=== PATIENT | male | born 1970 | race Caucasian/White ===

== ENCOUNTER → 2017-02-11 | Outpatient (CLI) | payer OTHER ==
[~2017-02-11] MED LIST: ACET-1256 PO; ALPR-411 PO; CLC100 PO; GADAVIST IV PRN; PARO1TAB27 PO
--- NOTE | 2017-02-11 16:53 | DIAGNOSTIC IMAGING REPORT ---
MRI OF THE ABDOMEN WITH AND WITHOUT CONTRAST RENAL PROTOCOL CLINICAL HISTORY: Renal cell carcinoma. Microscopic hematuria. COMPARISON STUDY: CT of the abdomen and pelvis February 02, 2016 and KUB August 27, 2016. TECHNIQUE: Utilizing a 1.5 Linette magnet and dedicated coil, multiplanar, multiecho imaging of the abdomen was performed pre and postcontrast administration. Post contrast imaging was performed utilizing dynamic enhancement. Injection of 8.3 cc of Gadavist IV was uneventful. FINDINGS: There are are stable postoperative findings following right nephrectomy. There is no abnormality within the right nephrectomy bed. The liver, spleen, adrenal glands and pancreas are unremarkable. The left kidney is normal. There is no left hydronephrosis. No abdominal lymphadenopathy is present. Several small ileocolic lymph nodes are unchanged. A 9 mm T2 hyperintense lesion within the right aspect of the L3 vertebral body is likely benign although indeterminate. The caliber and wall thickness of visualized small and large bowel are normal. There is no biliary or pancreatic ductal dilatation. There are are gallstones within the gallbladder. There is no ascites. IMPRESSION: 1. No evidence of recurrent malignancy status post right nephrectomy. 2. 9 mm T2 hyperintense lesion within the L3 vertebral body. This is indeterminate although likely benign. A follow-up MRI could be obtained in 6-12 months to ensure stability. Electronically signed by: Rod Disla M.D. 02/11/2017 4:52 PM Dictated Date/Time: 02/11/2017 11:10 AM
== END | disposition home or self-care (01) ==
LOC: C.MRIBC 09:39
PROVIDERS: ATTEND Urology
DX: R31.29 Other microscopic hematuria (principal); M53.86 Other specified dorsopathies, lumbar region

== ENCOUNTER → 2017-02-17 | Outpatient (CLI) | payer OTHER ==
[~2017-02-17] MED LIST changes: -GADAVIST IV PRN
--- NOTE | 2017-02-17 11:27 | DIAGNOSTIC IMAGING REPORT ---
CHEST 2 VIEWS ROUTINE CLINICAL HISTORY: Microscopic hematuria. History of renal cell carcinoma. COMPARISON STUDY: Chest radiograph August 27, 2016. FINDINGS: Lung volumes are normal. Lungs are clear. There is no pneumothorax or pleural effusion. Cardiac size is normal. Mediastinal contours are normal. There is no evidence of pulmonary edema. No pulmonary nodules are identified although sensitivity is diminished given radiographic technique. IMPRESSION: No acute cardiopulmonary findings. Electronically signed by: Rod Disla M.D. 02/17/2017 11:25 AM Dictated Date/Time: 02/17/2017 11:24 AM
--- NOTE | 2017-02-17 13:04 | DIAGNOSTIC IMAGING REPORT ---
KUB CLINICAL HISTORY: Hematuria. FINDINGS: 2 AP supine abdominal radiographs are compared to study dated 08/27/2016 and correlated with abdominal CT dated 02/02/2016. There is a nonobstructed abdominal bowel gas pattern. Moderate colonic fecal retention is noted on the right. Suture material projects over the right upper quadrant. There is no radiographic evidence of nephrolithiasis. The bony structures appear intact. Sclerotic change is noted in the sacroiliac joints. IMPRESSION: There is no radiographic evidence of nephrolithiasis. Electronically signed by: Luis Felipe Santiago M.D. 02/17/2017 1:02 PM Dictated Date/Time: 02/17/2017 1:00 PM
== END | disposition home or self-care (01) ==
LOC: C.RAD 10:40
PROVIDERS: ATTEND Urology
DX: R31.29 Other microscopic hematuria (principal)

== ENCOUNTER → 2017-04-25 | Outpatient (CLI) | payer OTHER ==
--- NOTE | 2017-04-25 14:53 | DIAGNOSTIC IMAGING REPORT ---
WHOLE-BODY BONE SCAN, INCLUDING SPECT IMAGING CLINICAL HISTORY: Bone lesion. Renal cell carcinoma. Chronic back pain. COMPARISON STUDY: MRI of the abdomen February 11, 2017. TECHNIQUE: 26.2 mCi of technetium 99 M MDP was injected IV at 10:30 AM on April 25, 2017. 3 hours following injection, whole body imaging was performed in the anterior and posterior projections. SPECT imaging was also performed within the mid to lower thoracic spine, lumbar spine and sacrum. FINDINGS: Expected radiotracer deposition is noted. There is expected soft tissue and renal uptake. There is mild uptake within the right ankle which is likely degenerative. No areas of suspicious radiotracer uptake are identified. There is no uptake within the L3 vertebral body to correspond to the lesion shown on prior MRI. IMPRESSION: No suspicious radiotracer uptake. No uptake to correspond to the L3 vertebral body lesion shown on prior MRI. This lesion remains indeterminate although likely benign and could be followed on subsequent imaging studies to ensure stability. Electronically signed by: Rod Disla M.D. 04/25/2017 2:52 PM Dictated Date/Time: 04/25/2017 2:44 PM
== END | disposition home or self-care (01) ==
LOC: C.NUCL 10:10
PROVIDERS: ATTEND Physician Assistant
DX: M89.9 Disorder of bone, unspecified (principal); C64.9 Malignant neoplasm of unspecified kidney, except renal pelvis; M54.5 Low back pain

== ENCOUNTER → 2017-05-02 | Outpatient (CLI) | payer OTHER ==
[2017-05-02 17:31] LABS: HEMATOCRIT 43.5 % (42-52); MEAN CELL VOLUME 90.2 fL (80-100); MEAN CORPUSCULAR HEMOGLOBIN 31.5 pg (25-34); MEAN CORPUSCULAR HGB CONC 34.9 g/dl (32-36); MEAN PLATELET VOLUME 9.2 fL (7.4-10.4); PLATELET COUNT 231 K/uL (130-400); RED BLOOD COUNT 4.82 M/uL (4.7-6.1)
[2017-05-02 17:34] LABS: URINE APPEARANCE CLEAR (CLEAR); URINE BILIRUBIN NEG (NEG); URINE COLOR YELLOW; URINE EPITHELIAL CELL AUTO 0-5 /lpf (0-5); URINE NITRITE NEG (NEG); URINE PH 6.5 (4.5-7.5); URINE SPECIFIC GRAVITY 1.017 (1.000-1.030); UROBILINOGEN NEG (NEG)
[2017-05-02 17:45] LABS: MANUAL MICROSCOPIC REQUIRED? NO; REVIEW REQ? NO
[2017-05-02 18:03] LABS: URINE PROTIEN/CREAT RATIO 0.1 (0-0.2); URINE TOTAL PROTEIN 15.5 mg/dl (0-11.9)
[2017-05-02 18:08] LABS: BLOOD UREA NITROGEN 15 mg/dl (7-18); BUN/CREATININE RATIO 10.1 (10-20); CALCIUM 9.2 mg/dl (8.5-10.1); CARBON DIOXIDE 28 mmol/L (21-32); CHLORIDE 104 mmol/L (98-107); GLUCOSE 89 mg/dl (70-99); MAGNESIUM 2.3 mg/dl (1.8-2.4); PHOSPHORUS 2.7 mg/dl (2.5-4.9); POTASSIUM 3.1 mmol/L (3.5-5.1); SODIUM 141 mmol/L (136-145); URIC ACID 5.2 mg/dl (2.6-7.2)
== END | disposition home or self-care (01) ==
LOC: C.LAB1850 16:45
PROVIDERS: ATTEND Internal Medicine Nephrology
DX: C64.9 Malignant neoplasm of unspecified kidney, except renal pelvis (principal); N18.3 Chronic kidney disease, stage 3 (moderate); R31.29 Other microscopic hematuria; N20.0 Calculus of kidney

== ENCOUNTER → 2017-10-08 | Outpatient (CLI) | payer OTHER ==
[2017-10-08 09:36] LABS: HEMATOCRIT 43.7 % (42-52); MEAN CELL VOLUME 91.4 fL (80-100); MEAN PLATELET VOLUME 9.1 fL (7.4-10.4); PLATELET COUNT 209 K/uL (130-400); RED BLOOD COUNT 4.78 M/uL (4.7-6.1); WHITE BLOOD COUNT 7.42 K/uL (4.8-10.8)
[2017-10-08 09:38] LABS: URINE APPEARANCE CLEAR (CLEAR); URINE BILIRUBIN NEG (NEG); URINE COLOR YELLOW; URINE NITRITE NEG (NEG); URINE PH 6.5 (4.5-7.5); URINE SPECIFIC GRAVITY 1.018 (1.000-1.030); UROBILINOGEN NEG (NEG)
[2017-10-08 09:42] LABS: MANUAL MICROSCOPIC REQUIRED? NO; REVIEW REQ? NO
[2017-10-08 10:03] LABS: ALT/SGPT 37 U/L (12-78); AST/SGOT 22 U/L (15-37); BLOOD UREA NITROGEN 18 mg/dl (7-18); BUN/CREATININE RATIO 12.1 (10-20); CALCIUM 9.1 mg/dl (8.5-10.1); CARBON DIOXIDE 28 mmol/L (21-32); CHLORIDE 102 mmol/L (98-107); CREATININE 1.51 mg/dl (0.60-1.40); GLUCOSE 117 mg/dl (70-99); MAGNESIUM 2.3 mg/dl (1.8-2.4); POTASSIUM 3.4 mmol/L (3.5-5.1); SODIUM 137 mmol/L (136-145); URIC ACID 5.4 mg/dl (2.6-7.2)
[2017-10-08 10:04] LABS: ALB/GLOB RATIO 1.2 (0.9-2); ALKALINE PHOSPHATASE 53 U/L (45-117)
[2017-10-08 10:26] LABS: URINE PROTIEN/CREAT RATIO 0.1 (0-0.2); URINE TOTAL PROTEIN 12.7 mg/dl (0-11.9)
== END | disposition home or self-care (01) ==
LOC: C.LAB1850 08:40
PROVIDERS: ATTEND Internal Medicine Nephrology
DX: R31.29 Other microscopic hematuria (principal); N18.3 Chronic kidney disease, stage 3 (moderate); E55.9 Vitamin D deficiency, unspecified; N20.0 Calculus of kidney

== ENCOUNTER → 2018-03-17 | Outpatient (CLI) | payer OTHER ==
--- NOTE | 2018-03-17 08:16 | DIAGNOSTIC IMAGING REPORT ---
LUMBAR SPINE W/O CONTRAST CLINICAL HISTORY: 47 years-old Male presenting with ABN LESION ON SPINE,F/U STUDY. TECHNIQUE: Multisequence, multiplanar MR imaging of the lumbar spine was performed without the use of intravenous contrast. IV contrast: None. COMPARISON: Nuclear medicine bone scan from 04/25/2017 and prior MR from 02/11/2017. FINDINGS: Localizer images: Absence of the right kidney. Normal lumbar lordosis. Vertebral bodies maintain normal height, alignment, and bone marrow signal intensity apart from the T2 hyperintense, T1 hypointense well-defined lesion in the L3 vertebral body. This is unchanged in size and appearance from prior MR of the abdomen last year. An additional similar-appearing lesion is also noted at L5. Both of these lesions are subcentimeter in size. Intervertebral discs demonstrate desiccation at L4-5 and desiccation and height loss at L5-S1. No significant spinal canal stenosis at any of the levels. Mild disc bulge at L5-S1 in combination with mild facet arthropathy results in mild bilateral neural foraminal narrowing at L5-S1. The spinal cord ends in good position at the inferior plate of L1. Cauda equina normal morphology. Paraspinal musculature normal. No epidural collection. Surgically absent right kidney noted. IMPRESSION: 1. Two indeterminant subcentimeter nonaggressive appearing lesions, one at L3 and one at L5. These most likely represent fat poor hemangiomas. No further follow-up is suggested. The lack of radiotracer avidity on prior bone scan further suggests hemangioma as nearly all primary bone tumors except a simple bone cyst would demonstrate radiotracer avidity. Electronically signed by: Eamon Lozano M.D. 03/17/2018 8:14 AM Dictated Date/Time: 03/17/2018 8:07 AM
== END | disposition home or self-care (01) ==
LOC: C.MRI 06:35
PROVIDERS: ATTEND Physician Assistant
DX: M89.9 Disorder of bone, unspecified (principal); M54.5 Low back pain

== ENCOUNTER → 2018-03-17 | Outpatient (CLI) | payer OTHER ==
[2018-03-17 09:37] LABS: HEMATOCRIT 42.3 % (42-52); HEMOGLOBIN 15.1 g/dL (14.0-18.0); MEAN CELL VOLUME 90.6 fL (80-100); MEAN CORPUSCULAR HEMOGLOBIN 32.3 pg (25-34); MEAN CORPUSCULAR HGB CONC 35.7 g/dl (32-36); MEAN PLATELET VOLUME 9.2 fL (7.4-10.4); PLATELET COUNT 209 K/uL (130-400); RED CELL DISTRIBUTION WIDTH CV 12.4 % (11.5-14.5); RED CELL DISTRIBUTION WIDTH SD 41.2 fL (36.4-46.3); WHITE BLOOD COUNT 6.78 K/uL (4.8-10.8)
[2018-03-17 10:01] LABS: ALBUMIN 3.9 gm/dl (3.4-5.0); ALT/SGPT 56 U/L (12-78); AST/SGOT 28 U/L (15-37); BLOOD UREA NITROGEN 15 mg/dl (7-18); CALCIUM 8.3 mg/dl (8.5-10.1); CARBON DIOXIDE 27 mmol/L (21-32); CREATININE 1.49 mg/dl (0.60-1.40); GLUCOSE 92 mg/dl (70-99); POTASSIUM 3.9 mmol/L (3.5-5.1); SODIUM 140 mmol/L (136-145)
[2018-03-17 10:04] LABS: ALKALINE PHOSPHATASE 53 U/L (45-117); TOTAL PROTEIN 7.3 gm/dl (6.4-8.2)
== END | disposition home or self-care (01) ==
LOC: C.LAB 06:39
PROVIDERS: ATTEND Internal Medicine Nephrology
DX: N18.3 Chronic kidney disease, stage 3 (moderate) (principal); E55.9 Vitamin D deficiency, unspecified; E21.3 Hyperparathyroidism, unspecified; R31.29 Other microscopic hematuria; N20.0 Calculus of kidney

== ENCOUNTER → 2018-06-07 | Outpatient (CLI) | payer OTHER ==
[2018-06-07 11:01] LABS: ALBUMIN 3.9 gm/dl (3.4-5.0); BLOOD UREA NITROGEN 13 mg/dl (7-18); CALCIUM 8.7 mg/dl (8.5-10.1); CARBON DIOXIDE 28 mmol/L (21-32); CREATININE 1.41 mg/dl (0.60-1.40); GLUCOSE 88 mg/dl (70-99); PHOSPHORUS 2.4 mg/dl (2.5-4.9); POTASSIUM 3.5 mmol/L (3.5-5.1); SODIUM 138 mmol/L (136-145)
== END | disposition home or self-care (01) ==
LOC: C.LAB 10:06
PROVIDERS: ATTEND Internal Medicine Nephrology
DX: N20.0 Calculus of kidney (principal)

== ENCOUNTER 2020-04-27 09:51 | Inpatient (IN) ==
[2020-04-27] MEDS ORDERED: SODIUM CHLORIDE 0.9% 1000ML 2,000 ML IV ONE (10:05)
--- NOTE | 2020-04-27 10:11 | Emergency Department Note ---
Impression & Plan Perforation of sigmoid colon due to diverticulitis, Abdominal pain, Pneumoperitoneum ED Provider Note NAME: ANNETTE NICHOLS AGE: 49 SEX: M : 1970 ARRIVES VIA: Walk-In INFORMANT: Patient ED PROVIDER(S): Alfredo Garcia DO CHIEF COMPLAINT: Abdominal pain HPI: Patient is a 49-year-old male with a past medical history of a nephrectomy secondary to cancer that presents to the ER for infraumbilical abdominal pain which has been present since Friday. He describes it as a dull ache about a 1 out of 10 currently. He notes it has waxed and waned over the past several days. Friday was the worst. Friday he did not eat or drink secondary to the pain. He has been eating and drinking a little bit better now. He denies any vomiting. No dysuria urgency or frequency. No hematuria. No headache, change in vision, chest pain, shortness of breath, nausea vomiting or diarrhea. Last bowel movement was earlier this morning where he had several loose bowel mo vements. ROS: See above HPI for pertinent positives & negatives. A total of 10 systems reviewed and were otherwise negative. PAST MEDICAL HISTORY:See Below PAST SURGICAL HISTORY:See Below FAMILY HISTORY:See Below SOCIAL HISTORY:See Below HOME MEDICATIONS:See Below ALLERGIES:See Below VITALS:See Below PHYSICAL EXAMINATION: GENERAL: Sitting up in bed, alert, well appearing, well nourished, no distress, non-toxic EYE EXAM: normal conjunctiva. OROPHARYNX: no exudate, no erythema, lips, buccal mucosa, and tongue normal and mucous membranes are moist NECK: supple, no nuchal rigidity, no adenopathy, non-tender LUNGS: Clear to auscultation. Normal chest wall mechanics HEART: no murmurs, S1 normal and S2 normal ABDOMEN: abdomen soft, infraumbilical abdominal pain, normo-active bowel sounds, no masses, no rebound or guarding. BACK: Back is symmetrical on inspection and there is no deformity, no midline tenderness, no CVA tenderness. SKIN: no rashes and no bruising UPPER EXTREMITIES: upper extremities are grossly normal. LOWER EXTREMITIES: No pitting edema. NEURO EXAM: Normal sensorium, cranial nerves II-XII grossly intact, normal speech, no gross weakness of arms, no gross weakness of legs. MEDICAL DECISION MAKING: Patient is a 49-year-old male who presents the ER for infraumbilical abdominal pain which has been present since this past Friday. On exam he does have tenderness. IV was established blood work was obtained. Labs show leukocytosis of 14,000. No significant anemia. BMP with LFTs bilirubin was unremarkable. Lipase was slightly elevated at 573. UA was clean. CT abdomen pelvis shows pneumoperitoneum with diverticulitis. Discussed with general surgery who evaluated the patient at bedside. Patient was given IV fluids. Patient was given IV Zosyn. He denied any pain medications. Evaluated by general surgery and admitted to the hospital. Triage Nursing notes reviewed. Prior medical records reviewed Vital Signs: reviewed and remarkable for no significant abnormalities Differential diagnosis: Differential diagnoses includes but is not limited to gastritis, peptic ulcer d isease, GERD, gallbladder disease, pancreatitis, small bowel obstruction, acute coronary syndrome, pericarditis, ischemic bowel, irritable bowel disease, irritable bowel syndrome, appendicitis, diverticulitis, malignancy, hernia, urinary tract infection, torsion, perforation, trauma, infectious. ER treatment provided: See below Diagnostics interpreted by me: ECG: none Cardiac Monitoring: An order was placed for continuous cardiac monitoring. The monitor shows a rate of 83 with Sinus rhythm. Laboratory studies: As stated above and show below. 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 Beliefs That Will Affect Care: None Current Living Situation: Alone Other Information That Helps Us Care for You: No Feels Safe at Home: Yes Safety Concerns: Feels Safe At This Time Smoking Status: Former smoker Hx Alcohol Use: No Hx Substance Use: No Allergies Allergies Allergy/AdvReac Type Severity Reaction Status Date / Time chlorthalidone Allergy Unknown RASH Verified 06/18/20 12:12 Home Meds Home Medications Medication Instructions Recorded Confirmed ergocalciferol (vitamin D2) 50,000 unit PO MONTHLY 04/27/20 04/27/20 hydrochlorothiazide 12.5 mg PO QAM 04/27/20 04/27/20 ibuprofen 200 mg PO HS PRN 04/27/20 04/27/20 potassium chloride 20 meq PO QAM 04/27/20 04/27/20 Results & Data (ED) Vital Signs Vital Signs - 24 hr 04/27/20 09:54 04/27/20 10:26 04/27/20 11:52 Temperature 37 C Temperature Source Oral Pulse Rate 88 Pulse Rate [Apical] 90 Pulse Rhythm Regular Pulse Strength Normal Respiratory Rate 18 18 Respiratory Effort / Characteristics Non-Labored Spontaneous Respiratory Depth Normal Respiratory Pattern Regular Blood Pressure 138/89 Blood Pressure [Left Arm] 139/96 Blood Pressure Mean 105 Blood Pressure Mean [Left Arm] 110 Blood Pressure Position Sitting Pulse Oximetry 98 98 98 Oxygen Delivery Method Room Air Room Air Room Air Sepsis Recent Fever Within 48 Hours No Sepsis New/Unexplained Change in Mental Status No Sepsis Action Taken by Nursing No Action Required Laboratory Data Result diagrams: 04/27/20 10:30 04/27/20 10:30 Lab Results 04/27/20 04/27/20 04/27/20 Range/Units 10:30 10:30 10:30 WBC 14.61 H (4.8-10.8) K/uL RBC 4.87 (4.7-6.1) M/uL Hgb 15.6 (14.0-18.0) g/dL Hct 45.0 (42-52) % MCV 92.4 (80-100) fL MCH 32.0 (25-34) pg MCHC 34.7 (32-36) g/dL RDW Std Deviation 41.5 (36.4-46.3) fL RDW Coeff of Tobias 12.4 (11.5-14.5) % Plt Count 194 (130-400) K/uL MPV 9.4 (7.4-10.4) fL Immature Gran % (Auto) 0.3 % Neut % (Auto) 80.9 % Lymph % (Auto) 10.5 % Pender % (Auto) 7.5 % Eos % (Auto) 0.7 % Baso % (Auto) 0.1 % Immature Gran # (Auto) 0.04 H (0.00-0.02) K/uL Neut # (Auto) 11.83 H (1.4-6.5) K/uL Lymph # (Auto) 1.54 (1.2-3.4) K/uL Pender # (Auto) 1.09 H (0.11-0.59) K/uL Eos # (Auto) 0.10 (0-0.5) K/uL Baso # (Auto) 0.01 (0-0.2) K/uL Sodium 140 (136-145) mmol/L Potassium 3.8 (3.5-5.1) mmol/L Chloride 107 (98-107) mmol/L Carbon Dioxide 29 (21-32) mmol/L Anion Gap 4.0 (3-11) BUN 12 (7-18) mg/dl Creatinine 1.30 (0.6-1.4) mg/dl Est Cr Clr Drug Dosing 75.4 ml/min Est GFR ( Amer) 74.3 Est GFR (Non-Af Amer) 64.1 BUN/Creatinine Ratio 9.5 L (10-20) Glucose 111 H (70-99) mg/dl Calcium 9.0 (8.5-10.1) mg/dl Total Bilirubin 0.5 (0.2-1) mg/dl AST 15 (15-37) U/L ALT 28 (12-78) U/L Alkaline Phosphatase 46 (45-117) U/L Total Protein 7.3 (6.4-8.2) gm/dl Albumin 3.7 (3.4-5.0) gm/dl Globulin 3.6 (2.5-4.0) gm/dl Albumin/Globulin Ratio 1.0 (0.9-2) Lipase 573 H (73-393) U/L Urine Color Yellow Urine Appearance Clear (Clear) Urine pH 7.0 (4.5-7.5) Ur Specific [place] 1.019 (1.000-1.030) Urine Protein Negative (Negative) Urine Glucose (UA) Negative (Negative) Urine Ketones Negative (Negative) Urine Blood Trace H (Negative) Urine Nitrite Negative (Negative) Urine Bilirubin Negative (Negative) Urine Urobilinogen Negative (Negative) Ur Leukocyte Esterase Negative (Negative) Urine WBC (Auto) 1-5 (0-5) /hpf Urine RBC (Auto) 5-10 H (0-4) /hpf U Hyaline Cast (Auto) 1-5 (0-5) /lpf U Epithel Cells (Auto) 5-10 H (0-5) /lpf Urine Bacteria (Auto) Negative (Negative) Administered Medications Sodium Chloride (Nss 1000ml) 1,000 mls @ 125 mls/hr IV .Q8H GABRIELLA Stop: 05/27/20 13:45 Last Admin: 04/27/20 14:05 Dose: 125 mls/hr Documented by: [id number] Morphine Sulfate (Morphine Sulfate) 2 mg IV Q2H PRN PRN Reason: MODERATE Pain (Scale 4,5,6) Stop: 05/11/20 13:45 Last Admin: 04/27/20 16:15 Dose: 2 mg Documented by: [id number] Discontinued Medications Sodium Chloride (Nss 1000ml) 2,000 mls @ 999 mls/hr IV .Q2H1M ONE Stop: 04/27/20 12:05 Last Infusion: 04/27/20 12:41 Dose: 0 mls/hr Documented by: [id number] Admin: 04/27/20 10:40 Dose: 999 mls/hr Documented by: [id number] Piperacillin Sod/Tazobactam Sod (Zosyn) 4.5 gm in 120 mls @ 240 mls/hr IV NOW ONE Stop: 04/27/20 12:14 Last Infusion: 04/27/20 12:28 Dose: 0 mls/hr Documented by: [id number] Admin: 04/27/20 11:57 Dose: 240 mls/hr Documented by: [id number] Ioversol (Optiray 320 100ml) 94 ml IV ONCE PRN PRN Reason: Interaction Checking Stop: 05/01/20 11:24 Last Admin: 04/27/20 11:25 Dose: 94 ml Documented by: [id number] Discharge Plan Visit Data *Final* Discharge Date/Time: 04/27/20 13:02 Chief Complaint: Abdominal Pain Stated Complaint: LOWER ABD PAIN,CHILLS,NAUSEA ED Provider: Alfredo Garcia Discharge Problem: Perforation of sigmoid colon due to diverticulitis, Abdominal pain, Pneumoperitoneum Patient Disposition: Admitted As Inpatient Discharge Instructions Interventions: ED Discharge Assessment Last Done: 04/27/20 13:02 Discharge Problem: Abdominal pain Qualifiers: Abdominal location: unspecified location Qualified Code(s): R10.9 - Unspecified abdominal pain
[2020-04-27 10:47] LABS: Basophils # (auto) 0.01 K/uL (0-0.2); Basophils % (auto) 0.1 %; Eosinophils % (auto) 0.7 %; Hemoglobin 15.6 g/dL (14.0-18.0); Immature Granulocytes # (auto) 0.04 K/uL (0.00-0.02); Immature Granulocytes % (auto) 0.3 %; Lymphocytes # (auto) 1.54 K/uL (1.2-3.4); Lymphocytes % (auto) 10.5 %; Mean Corpuscular Hgb Conc 34.7 g/dL (32-36); Mean Corpuscular Volume 92.4 fL (80-100); Mean Platelet Volume 9.4 fL (7.4-10.4); Monocytes # (auto) 1.09 K/uL (0.11-0.59); Monocytes % (auto) 7.5 %; Neutrophils # (auto) 11.83 K/uL (1.4-6.5); Neutrophils % (auto) 80.9 %; Platelet Count 194 K/uL (130-400); RDW Coefficient of Variation 12.4 % (11.5-14.5); RDW Standard Deviation 41.5 fL (36.4-46.3); Red Blood Count 4.87 M/uL (4.7-6.1); White Blood Count 14.61 K/uL (4.8-10.8)
[2020-04-27 10:56] LABS: Appearance Urine Clear (Clear); Bacteria Urine Automated Negative (Negative); Bilirubin Urine Negative (Negative); Blood Urine Trace (Negative); Color Urine Yellow; Glucose Urine UA Negative (Negative); Ketones Urine Negative (Negative); Leukocyte Esterase Urine Negative (Negative); Nitrite Urine Negative (Negative); Protein Urine Negative (Negative); Specific Gravity Urine 1.019 (1.000-1.030); Urobilinogen Urine Negative (Negative)
[2020-04-27 11:04] LABS: Albumin Level 3.7 gm/dl (3.4-5.0); BUN Creatinine Ratio 9.5 (10-20); Creatinine Clr Calc Pharmacy 75.4 ml/min; Est GFR (African American) 74.3; Est GFR (Non-African American) 64.1; Potassium 3.8 mmol/L (3.5-5.1)
[2020-04-27 11:07] LABS: Bilirubin,Total 0.5 mg/dl (0.2-1); Globulin 3.6 gm/dl (2.5-4.0); Total Protein 7.3 gm/dl (6.4-8.2)
[2020-04-27] MEDS ORDERED: IOVERSOL 100ml IV PRN (11:25)
--- NOTE | 2020-04-27 11:43 | CT Scan Report ---
CT OF THE ABDOMEN AND PELVIS WITH CONTRAST CLINICAL HISTORY: Infraumbilical abdominal pain. COMPARISON STUDY: CT of the abdomen and pelvis February 02, 2016. MRI of the abdomen February 11, 2017. TECHNIQUE: Following IV administration of 94 mL of Optiray-320, axial images of the abdomen and pelvi s were obtained from the lung bases to the proximal femurs. Images were reviewed in the axial, sagitt al, and coronal planes. IV contrast was administered without complication. Automated exposure contro l was utilized for the study. A dose lowering technique was utilized adhering to the principles of A KENDRA. CT DOSE: 425.88 mGy.cm FINDINGS: Lung bases are unremarkable. The liver, spleen, left adrenal gland, left kidney and pancrea s are normal. There is no abnormality within the right nephrectomy bed. There are gallstones within t he gallbladder without evidence for acute cholecystitis. The appendix is normal. Colonic diverticulos is is noted. There is mild inflammation adjacent to the proximal sigmoid colon with mild colonic wall thickening. Note is made of moderate pneumoperitoneum. No extraluminal gas is noted adjacent to the sigmoid colon however the findings suggest a perforated sigmoid diverticulitis. There is no fluid col lection is suggest an abscess. No suspicious osseous lesions are noted. There is no lymphadenopathy. IMPRESSION: Moderate pneumoperitoneum consistent with a perforated hollow viscus. Findings are sugge stive of perforated acute sigmoid diverticulitis with mild inflammation and wall thickening of the pr oximal sigmoid colon. No abscess. ACT 112: Negative or not required by law. Electronically signed by: Rod Disla M.D. 04/27/2020 11:41 AM
[2020-04-27] MEDS ORDERED: PIPERACILLIN/TAZOBACTAM 4.5 GM/120 ML BAG IV ONE (11:45)
[2020-04-27] MEDS ORDERED: PIPERACILL/TAZOBAC CONSULT ACTIVE PRN ×2 (11:45→13:46)
--- NOTE | 2020-04-27 12:15 | History & Physical Report ---
Date of Service April 27, 2020 Assessment & Plan (1) Perforation of sigmoid colon due to diverticulitis: This is a 49yM with a PMH of R nephrectomy 5 years ago who presents to the [facility] ED on 04/27/20 with complaints of abdominal pain. Workup in the ED with a CT a/p revealed findings concerning for pneumoperitoneum consistent with possible perforated sigmoid diverticulitis, without abscess formation. WBC 14. Patient afebrile and vital signs stable. On examination patient has tenderness to p alpation infraumbilically. At this time we will opt for conservative management based on patient's vitals and physical examination. He clinically appears well. We will start IV abx, IVF and keep patient NPO with sips. We will continue to monitor closely. History of Present Illness Primary Care Provider: Raquel Pagan PA-C This is a 49yM with a PMH of R nephrectomy 5 years ago who presents to the [facility] ED on 04/27/20 with complaints of abdominal pain. Patient reports his pain started on Friday morning after having about of diarrhea. He laid in bed and did not eat anything all day. On Friday his pain was still present but improved, then today he had another BM and the abdominal pain returned and was worse in severity. In the ED patient underwent a CT a/p that revealed findings concerning for moderate pneumoperitoneum consistent with a perforated hollow viscus, likely from perforated sigmoid diverticulitis. WBC 14.6. Patient describes the pain as sharp and "squeezing", rating it a 5/10 at it's worst. Pain currently 1/10 and he did not receive any pain meds in the ED, only took an Advil this AM. Patient endorses nausea. Denies any blood in the BMs. He reports he has had a colonoscopy in the past. This is the first time he had a bout of diverticulitis to his knowledge. Surgery was consulted for further evaluation. Allergies Allergy/AdvReac Type Severity Reaction Status Date / Time chlorthalidone Allergy Unknown RASH Verified 04/27/20 12:12 Home Medications Home Medications Medication Instructions Recorded Confirmed Type ergocalciferol (vitamin D2) 50,000 unit PO MONTHLY 04/27/20 04/27/20 History hydrochlorothiazide 12.5 mg PO QAM 04/27/20 04/27/20 History ibuprofen 200 mg PO HS PRN 04/27/20 04/27/20 History potassium chloride 20 meq PO QAM 04/27/20 04/27/20 History Past Med/Surg History Medical History Chronic kidney disease, stage III (moderate) (Chronic) Kidney stones (Chronic) Vitamin deficiency (Chronic) Surgical History History of nephrectomy, right (Chronic) Social History Preferred Language: [place] Citizen Communication Ability: Effective 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 Beliefs That Will Affect Care: None Current Living Situation: Alone Other Information That Helps Us Care for You: No Feels Safe at Home: Yes Safety Concerns: Feels Safe At This Time Smoking Status: Former smoker Hx Alcohol Use: No Hx Substance Use: No Review of Systems Constitutional: no fever Gastrointestinal: + abdominal pain and + nausea; no bloating diarrhea two days ago Physical Exam Physical Exam: awake/alert Respiratory: normal respiratory effort Gastrointestinal (Abdomen): Inspection/Auscultation: + abdomen distended (mild) and + abdominal surgical scar (well healed scar from R nephrectomy) Percussion/Palpation: + abdomen tender (ttp in lower abdominal regions, mostly infraumbilical) and abdomen soft Results & Data Results & Data ([facility]) Vital Signs (Past 12 Hours) Vital Signs Temp Pulse Pulse Resp BP BP Pulse Ox 04/27/20 11:52 90 18 139/96 98 04/27/20 10:26 98 04/27/20 09:54 37 C 88 18 138/[address] OF THE ABDOMEN AND PELVIS WITH CONTRAST CLINICAL HISTORY: Infraumbilical abdominal pain. COMPARISON STUDY: CT of the abdomen and pelvis February 02, 2016. MRI of the abdomen February 11, 2017. TECHNIQUE: Following IV administration of 94 mL of Optiray-320, axial images of the abdomen and pelvis were obtained from the lung bases to the proximal femurs. Images were reviewed in the axial, sagittal, and coronal planes. IV contrast was administered without complication. Automated exposure control was utilized for the study. A dose lowering technique was utilized adhering to the principles of ALARA. CT DOSE: 425.88 mGy.cm FINDINGS: Lung bases are unremarkable. The liver, spleen, left adrenal gland, left kidney and pancreas are normal. There is no abnormality within the right nephrectomy bed. There are gallstones within the gallbladder without evidence for acute cholecystitis. The appendix is normal. Colonic diverticulosis is noted. There is mild inflammation adjacent to the proximal sigmoid colon with mild colonic wall thickening. Note is made of moderate pneumoperitoneum. No extraluminal gas is noted adjacent to the sigmoid colon however the findings suggest a perforated sigmoid diverticulitis. There is no fluid collection is suggest an abscess. No suspicious osseous lesions are noted. There is no lymphadenopathy. IMPRESSION: Moderate pneumoperitoneum consistent with a perforated hollow viscus. Findings are suggestive of perforated acute sigmoid diverticulitis with mild inflammation and wall thickening of the proximal sigmoid colon. No abscess. ACT 112: Negative or not required by law. Electronically signed by: Rod Disla M.D. 04/27/2020 11:41 AM Supervising Physician Co-Signing Physician Notes Patient seen and examined, labs and imaging reviewed, agree with above. Abdominal pain starting over the weekend with worsening pain this morning. He had a colonoscopy about 5 years ago, history of nephrectomy, otherwise no history of bowel surgery. On exam he is afebrile with stable vital signs. Abdomen soft, tender to palpation in the lower abdomen and left lower quadrant. No guarding or rebound. WBC 14. CT scan showed moderate diverticulitis in the sigmoid colon with a small amount of pneumoperitoneum over the liver. 49-year-old male with diverticulitis with small amount of free air, but clinically benign abdominal exam No surgical intervention indicated at this time [facility] except for sips of water, IV antibiotics Patient understands that if condition worsens he may require surgery with possible ostomy Diagnosis and plan of care discussed the patient, all questions were answered, the patient expressed understanding agrees the plan of care as stated PG Care Time/CCT Total # of Minutes Spent Total Time Spent with Patient: Total time spent is greater than 50% in coordination of care (as documented) at patient's floor/unit and/or counseling patient: Coding Level of Care Code 51208 Initial Inpt Care Lvl 2 Diagnoses Perforation of sigmoid colon due to diverticulitis K57.20
[2020-04-27] MEDS ORDERED: MoRPHine SULFATE 4 MG/ML 1 ML CARP\\VIAL IV PRN (13:46)
[2020-04-27] MEDS ORDERED: ONDANSETRON INJ 2 MG/ML 2 ML VIAL IV PRN (13:46)
[2020-04-27] MEDS: SODIUM CHLORIDE 0.9% 1000ML 1,000 ML IV SCH ×2 (14:05→21:49)
[2020-04-27] MEDS: MoRPHine SULFATE 2 MG/ML CARP IV PRN ×3 (16:15→23:50)
[2020-04-27] MEDS: PIPERACILLIN/TAZOBACTAM 3.375 GM in DEXTROSE 5% 100 ML IV SCH ×2 (16:18→23:47)
[2020-04-28] MEDS: ACETAMINOPHEN 1000 MG/100 ML IV IV PRN ×3 (03:55→21:12)
[2020-04-28] MEDS: SODIUM CHLORIDE 0.9% 1000ML 1,000 ML IV SCH ×3 (05:27→21:12)
[2020-04-28 06:56] LABS: Hematocrit (blood only) 39.4 % (42-52); Hemoglobin 13.8 g/dL (14.0-18.0); Mean Corpuscular Hemoglobin 31.9 pg (25-34); Mean Corpuscular Volume 91.2 fL (80-100); Mean Platelet Volume 9.2 fL (7.4-10.4); Platelet Count 169 K/uL (130-400); RDW Coefficient of Variation 12.3 % (11.5-14.5); RDW Standard Deviation 41.2 fL (36.4-46.3); Red Blood Count 4.32 M/uL (4.7-6.1); White Blood Count 11.32 K/uL (4.8-10.8)
[2020-04-28 07:29] LABS: BUN Creatinine Ratio 6.9 (10-20); Calcium 8.3 mg/dl (8.5-10.1); Creatinine Clr Calc Pharmacy 75.4 ml/min; Est GFR (African American) 74.3; Est GFR (Non-African American) 64.1; Potassium 3.2 mmol/L (3.5-5.1)
[2020-04-28] MEDS: PIPERACILLIN/TAZOBACTAM 3.375 GM in DEXTROSE 5% 100 ML IV SCH ×3 (07:40→23:42)
[2020-04-28] MEDS: MoRPHine SULFATE 2 MG/ML CARP IV PRN ×2 (07:41→18:10)
--- NOTE | 2020-04-28 10:07 | Surgery Progress Note ---
Date of Service April 28, 2020 Assessment & Plan (1) Perforation of sigmoid colon due to diverticulitis: 49-year-old male with perforated diverticulitis, responding well to nonoperative management with antibiotics and bowel rest. Advance diet to clear liquids Continue IV antibiotics until white blood cell count normalizes, tolerating a low fiber diet, and pain improved He will need transition to oral antibiotics for 10 days He will need outpatient colonoscopy in 2 to 3 months Follow-up with general surgery after discharge Dr. Bustillos will be covering over the weekend Subjective 49-year-old male admitted with diverticulitis and moderate pneumoperitoneum, being treated with bowel rest and antibiotics. This morning feels better, more cramping pain that sharp pain. He had one episode of nausea and a little bit of chills overnight with a reported fever. He has not had a bowel movement. Physical Exam Constitutional: WD/WN, vitals as above Gastrointestinal (Abdomen): Percussion/Palpation: + abdomen tender (Mild tenderness to palpation in the left lower quadrant and pelvis. ) and abdomen soft; no guarding, abdomen not rigid and no hepatosplenomegaly Results & Data Vital Signs (Past 12 Hours) Vital Signs Temp Pulse Resp BP Pulse Ox 04/28/20 08:15 37.0 C 84 18 127/77 98 04/27/20 23:13 37.6 C H 87 14 125/80 96 Laboratory Results Laboratory Results - last 24 hr 04/27/20 04/27/20 04/27/20 10:30 10:30 10:30 WBC 14.61 H RBC 4.87 Hgb 15.6 Hct 45.0 MCV 92.4 MCH 32.0 MCHC 34.7 RDW Std Deviation 41.5 RDW Coeff of Tobias 12.4 Plt Count 194 MPV 9.4 Immature Gran % (Auto) 0.3 Neut % (Auto) 80.9 Lymph % (Auto) 10.5 [place] % (Auto) 7.5 Eos % (Auto) 0.7 Baso % (Auto) 0.1 Immature Gran # (Auto) 0.04 H Neut # (Auto) 11.83 H Lymph # (Auto) 1.54 [place] # (Auto) 1.09 H Eos # (Auto) 0.10 Baso # (Auto) 0.01 Sodium 140 Potassium 3.8 Chloride 107 Carbon Dioxide 29 Anion Gap 4.0 BUN 12 Creatinine 1.30 Est Cr Clr Drug Dosing 75.4 Est GFR ( Amer) 74.3 Est GFR (Non-Af Amer) 64.1 BUN/Creatinine Ratio 9.5 L Glucose 111 H Calcium 9.0 Total Bilirubin 0.5 AST 15 ALT 28 Alkaline Phosphatase 46 Total Protein 7.3 Albumin 3.7 Globulin 3.6 Albumin/Globulin Ratio 1.0 Lipase 573 H Urine Color Yellow Urine Appearance Clear Urine pH 7.0 Ur Specific [place] 1.019 Urine Protein Negative Urine Glucose (UA) Negative Urine Ketones Negative Urine Blood Trace H Urine Nitrite Negative Urine Bilirubin Negative Urine Urobilinogen Negative Ur Leukocyte Esterase Negative Urine WBC (Auto) 1-5 Urine RBC (Auto) 5-10 H U Hyaline Cast (Auto) 1-5 U Epithel Cells (Auto) 5-10 H Urine Bacteria (Auto) Negative 04/28/20 04/28/20 06:34 06:34 WBC 11.32 H RBC 4.32 L Hgb 13.8 L Hct 39.4 L MCV 91.2 MCH 31.9 MCHC 35.0 RDW Std Deviation 41.2 RDW Coeff of [place] 12.3 Plt Count 169 MPV 9.2 Immature Gran % (Auto) Neut % (Auto) Lymph % (Auto) [place] % (Auto) Eos % (Auto) Baso % (Auto) Immature Gran # (Auto) Neut # (Auto) Lymph # (Auto) [place] # (Auto) Eos # (Auto) Baso # (Auto) Sodium 140 Potassium 3.2 L D Chloride 108 H Carbon Dioxide 25 Anion Gap 7.0 BUN 9 Creatinine 1.30 Est Cr Clr Drug Dosing 75.4 Est GFR ( Amer) 74.3 Est GFR (Non-Af Amer) 64.1 BUN/Creatinine Ratio 6.9 L Glucose 111 H Calcium 8.3 L Total Bilirubin AST ALT Alkaline Phosphatase Total Protein Albumin Globulin Albumin/Globulin Ratio Lipase Urine Color Urine Appearance Urine pH Ur Specific [place] Urine Protein Urine Glucose (UA) Urine Ketones Urine Blood Urine Nitrite Urine Bilirubin Urine Urobilinogen Ur Leukocyte Esterase Urine WBC (Auto) Urine RBC (Auto) U Hyaline Cast (Auto) U Epithel Cells (Auto) Urine Bacteria (Auto) PG Care Time/CCT Total # of Minutes Spent Total Time Spent with Patient: Total time spent is greater than 50% in coordination of care (as documented) at patient's floor/unit and/or counseling patient: Coding Level of Care Code 04001 Subseq Hosp Care Lvl 2 Diagnoses Perforation of sigmoid colon due to diverticulitis K57.20
[2020-04-29] MEDS: ACETAMINOPHEN 1000 MG/100 ML IV IV PRN ×3 (04:27→21:38)
[2020-04-29] MEDS: SODIUM CHLORIDE 0.9% 1000ML 1,000 ML IV SCH ×3 (04:30→20:18)
[2020-04-29 07:37] LABS: Hematocrit (blood only) 38.2 % (42-52); Hemoglobin 13.7 g/dL (14.0-18.0); Mean Corpuscular Hemoglobin 32.6 pg (25-34); Mean Corpuscular Hgb Conc 35.9 g/dL (32-36); Mean Platelet Volume 9.3 fL (7.4-10.4); Platelet Count 173 K/uL (130-400); RDW Coefficient of Variation 12.2 % (11.5-14.5); RDW Standard Deviation 40.7 fL (36.4-46.3); White Blood Count 8.82 K/uL (4.8-10.8)
[2020-04-29 08:16] LABS: BUN Creatinine Ratio 5.2 (10-20); Creatinine Clr Calc Pharmacy 81.1 ml/min; Est GFR (Non-African American) 69.9; Potassium 3.1 mmol/L (3.5-5.1)
[2020-04-29] MEDS: PIPERACILLIN/TAZOBACTAM 3.375 GM in DEXTROSE 5% 100 ML IV SCH ×3 (09:22→23:48)
--- NOTE | 2020-04-29 09:42 | Surgery Progress Note ---
Date of Service April 29, 2020 Assessment & Plan (1) Perforation of sigmoid colon due to diverticulitis: Diverticulitis with microperforation and free air Abdomen is benign Tolerating clears and will advance to full liquid diet Continue IV antibiotics White blood cell count down to 8.8 Subjective Patient feeling well today Pain is minimal Tolerated clear liquid diet Having bowel movements with no melena or hematochezia Denies nausea Physical Exam Gastrointestinal (Abdomen): Inspection/Auscultation: normal bowel sounds; abdomen not distended Percussion/Palpation: + abdomen tender (Minimal lower abdominal) and abdomen soft Results & Data Vital Signs (Past 12 Hours) Vital Signs Temp Pulse Resp BP Pulse Ox 04/29/20 08:03 36.9 C 72 16 142/81 H 97 04/28/20 23:50 36.9 C 78 16 134/78 96 Laboratory Results 04/29/20 04/29/20 Range/Units 07:04 07:04 WBC 8.82 (4.8-10.8) K/uL RBC 4.20 L (4.7-6.1) M/uL Hgb 13.7 L (14.0-18.0) g/dL Hct 38.2 L (42-52) % MCV 91.0 (80-100) fL MCH 32.6 (25-34) pg MCHC 35.9 (32-36) g/dL RDW Std Deviation 40.7 (36.4-46.3) fL RDW Coeff of Tobias 12.2 (11.5-14.5) % Plt Count 173 (130-400) K/uL MPV 9.3 (7.4-10.4) fL Sodium 139 (136-145) mmol/L Potassium 3.1 L (3.5-5.1) mmol/L Chloride 109 H (98-107) mmol/L Carbon Dioxide 25 (21-32) mmol/L Anion Gap 5.0 (3-11) BUN 6 L (7-18) mg/dl Creatinine 1.21 (0.6-1.4) mg/dl Est Cr Clr Drug Dosing 81.1 ml/min Est GFR ( Amer) 81.0 Est GFR (Non-Af Amer) 69.9 BUN/Creatinine Ratio 5.2 L (10-20) Glucose 92 (70-99) mg/dl Calcium 8.0 L (8.5-10.1) mg/dl
[2020-04-30] MEDS: SODIUM CHLORIDE 0.9% 1000ML 1,000 ML IV SCH ×2 (03:37→11:23)
[2020-04-30 06:22] LABS: Hematocrit (blood only) 39.5 % (42-52); Hemoglobin 13.6 g/dL (14.0-18.0); Mean Corpuscular Hemoglobin 31.7 pg (25-34); Mean Corpuscular Hgb Conc 34.4 g/dL (32-36); Mean Corpuscular Volume 92.1 fL (80-100); Mean Platelet Volume 9.1 fL (7.4-10.4); Platelet Count 187 K/uL (130-400); RDW Coefficient of Variation 12.3 % (11.5-14.5); RDW Standard Deviation 41.8 fL (36.4-46.3); Red Blood Count 4.29 M/uL (4.7-6.1); White Blood Count 9.13 K/uL (4.8-10.8)
[2020-04-30 06:53] LABS: BUN Creatinine Ratio 4.6 (10-20); Calcium 8.2 mg/dl (8.5-10.1); Creatinine Clr Calc Pharmacy 84.5 ml/min; Est GFR (African American) 85.2; Est GFR (Non-African American) 73.5; Potassium 3.2 mmol/L (3.5-5.1)
[2020-04-30] MEDS: PIPERACILLIN/TAZOBACTAM 3.375 GM in DEXTROSE 5% 100 ML IV SCH (07:25)
--- NOTE | 2020-04-30 09:05 | Surgery Progress Note ---
Date of Service April 30, 2020 Assessment & Plan (1) Perforation of sigmoid colon due to diverticulitis: Diverticulitis with microperforation Patient is pain-free No tenderness Will place on low fiber diet. If he tolerates consider discharge on antibiotics Subjective Feels very well this morning Denies abdominal pain Passing bowels without blood Tolerated full liquid diet Physical Exam Gastrointestinal (Abdomen): Inspection/Auscultation: abdomen normal to inspection; abdomen not distended Percussion/Palpation: abdomen soft; abdomen nontender Results & Data Vital Signs (Past 12 Hours) Vital Signs Temp Pulse Resp BP Pulse Ox 04/29/20 23:28 37.3 C 74 18 145/91 H 97
--- NOTE | 2020-05-02 08:07 | Discharge Summary ---
Date of Service May 02, 2020 Admission HPI Per Admitting Provider This is a 49yM with a PMH of R nephrectomy 5 years ago who presents to the [facility] ED on 04/27/20 with complaints of abdominal pain. Patient reports his pain started on Friday morning after having about of diarrhea. He laid in bed and did not eat anything all day. On Friday his pain was still present but improved, then today he had another BM and the abdominal pain returned and was worse in severity. In the ED patient underwent a CT a/p that revealed findings concerning for moderate pneumoperitoneum consistent with a perforated hollow viscus, likely from perforated sigmoid diverticulitis. WBC 14.6. Patient descri bes the pain as sharp and "squeezing", rating it a 5/10 at it's worst. Pain currently 1/10 and he did not receive any pain meds in the ED, only took an Advil this AM. Patient endorses nausea. Denies any blood in the BMs. He reports he has had a colonoscopy in the past. This is the first time he had a bout of diverticulitis to his knowledge. Surgery was consulted for further evaluation. Principal Diagnosis perforated acute sigmoid diverticulitis Discharge Exam Gastrointestinal (Abdomen) Inspection/Auscultation: abdomen not distended Percussion/Palpation: abdomen soft; abdomen nontender Discharge Data Allergies Allergy/AdvReac Type Severity Reaction Status Date / Time chlorthalidone Allergy Unknown RASH Verified 04/27/20 12:12 Consultations 04/27/20 11:51 Consult General Surgery Stat Ordered Studies 04/27/20 10:05 CT abd pelvis IV con only Stat Hospital Course (1) Perforation of sigmoid colon due to diverticulitis: This is a 49yM who presented to the [facility] ED on 04/27/20 with complaints of abdominal pain. Workup revealed findings concerning for pneumoperitoneum due to perforated acute sigmoid diverticulitis with a WBC of 14.6. The patient was e valuated and admitted under the surgical service and was made NPO with IVF and started on IV zosyn. Over the course of the patient's hospitalization his WBC downtrended nicely. As his abdominal pain improved his diet was advanced from clears, to fulls, then a low fiber diet, all of which he tolerated well. On 04/30 the patient denied any abdominal pain, WBC 9.1, and he was tolerating a diet. He was deemed stable for discharge to home and was prescribed oral cipro and flagyl to complete a course of antibiotics. He was also given instructions to obtain follow up with GI for an outpatient colonoscopy in 2-3 mos. Total Time Total Time Spent Total Time Spent (In Minutes): 10 Discharge Plan Discharge Items Patient Disposition: Home - Self-Care Reason For Visit: DIVERTICULITIS Discharge Diagnosis: diverticulitis of the colon Activity: Per Instructions section Lifting: Gradually increase as tolerated Bathing: No limitations Sexual Activity: When tolerated Exercise/Sports: Gradually increase as tolerated Driving/Machine Use: Resume 1 day after discharge Non-emergency contact: Surgeon Call non-emergency contact if: you have any medication questions, your symptoms worsen, your pain is not controlled, your pain is worsening, you have a fever and your temperature is above 101.5 Follow-up/Referrals: Lawrence Maradiaga, INGA BUTLER [Physician] - Raquel Pagan PA-C [Primary Care Provider] - Diet: Low Fiber Addtl Attending Provider Instructions: You should schedule an appointment with the Manager Of Disaster Recovery within 2 months for a colonoscopy Pending Studies at Discharge: No Stand-Alone Forms: [facility] [email or web address], Opioid Pain Management, Smoking Cessation Medications and DC Order Prescriptions: New ciprofloxacin HCl 750 mg tablet 750 mg PO BID Qty: 20 RF: 0 metronidazole 500 mg tablet 500 mg PO TID Qty: 21 RF: 0 Continued ibuprofen 200 mg Tablet 200 mg PO HS PRN (Reason: Pain) RF: 0 hydrochlorothiazide 12.5 mg capsule 12.5 mg PO QAM RF: 0 ergocalciferol (vitamin D2) 50,000 unit capsule 50,000 unit PO MONTHLY RF: 0 potassium chloride 20 mEq tablet extended release 20 meq PO QAM RF: 0 Discharge Orders: Discharge Order (Routine); Ordered 04/30/20 Ordered By: Silvano Whitt/Other Patient Handouts: Diverticulosis Diverticulitis, Discharge Instructions for Diverticulitis Admission Data Admit Date/Time: 04/27/20 12:24 Attending Provider: Lawrence Maradiaga Admit Provider: Lawrence Maradiaga Primary Care Provider: Raquel Pagan Other Providers: Lawrence Maradiaga Other Interventions: Discharge Summary Assessment (RN) Last Done: 04/30/20 16:31 DC Date/Time DO NOT enter until pt leaves facility: 04/30/20 16:47 Coding Level of Care Code D/C Day Management <30 mins Diagnoses Perforation of sigmoid colon due to diverticulitis K57.20
== END 2020-04-30 16:47 | disposition home or self-care (01) | DRG 392 ==
LOC: ED 09:51 → 3N 12:24